=== PATIENT | female | born 1935 | race Caucasian/White ===

== ENCOUNTER 2018-08-28 11:09 | Inpatient (IN) | payer MEDICARE, OTHER ==
[2018-08-28] MEDS ORDERED: MORPHINE SULFATE 4 MG/ML SYRINGE IV STA (11:33)
[2018-08-28] MEDS ORDERED: SODIUM CHLORIDE 0.9% 500 ML 500 ML IV STA (11:33)
--- NOTE | 2018-08-28 11:48 | ED ---
General Adult HPI - General Chief complaint: Abdominal Pain Stated complaint: Abd Pain, syncope Time Seen by Provider: 08/28/18 11:16 Source: patient, EMS, RN notes reviewed, old records reviewed Mode of arrival: EMS Limitations: no limitations - History of Present Illness Initial comments: 82-year-old female presenting with 2 days of lower abdominal pain. Pain is been constant in nature. Patient describes some abdominal bloating. She denies upper abdominal pain, denies chest pain. Denies vomiting. She states she had a bowel movement yesterday which was normal. No fever or chills, she did feel lightheaded and almost passed out secondary to the pain. She states at that time she was diaphoretic. This occurred just prior to arrival. She believes the pain is steadily worsening. She has history of hypertension, chronic UTI and she is on daily Macrobid. - Related Data Home Medications Medication Instructions Recorded Confirmed ALPRAZolam [Xanax] 0.25 mg PO DAILY PRN 08/28/18 08/28/18 Metoprolol Succinate (ER) [Toprol 50 mg PO DAILY 08/28/18 08/28/18 Xl] Montelukast [Singulair] 10 mg PO DAILY 08/28/18 08/28/18 Nitrofurantoin Monohyd/M-Cryst 100 mg PO BID 08/28/18 08/28/18 [Macrobid] Telmisartan 80 mg PO DAILY 08/28/18 08/28/18 Allergies Allergy/AdvReac Type Severity Reaction Status Date / Time codeine Allergy Unknown Verified 08/28/18 14:14 flavoxate Allergy Unknown Verified 08/28/18 14:14 ANTIBIOTICS AdvReac Nausea & Uncoded 08/28/18 11:33 Vomiting & Diarrhea Review of Systems ROS Statement: Those systems with pertinent positive or pertinent negative responses have been documented in the HPI. ROS Other: All systems not noted in ROS Statement are negative. Past Medical History Past Medical History: Hypertension, Myocardial Infarction ([place]) Additional Past Medical History / Comment(s): frequent UTI's History of Any Multi-Drug Resistant Organisms: None Reported Past Surgical History: Appendectomy, Cholecystectomy, Heart Catheterization With Stent Past Psychological History: Anxiety Smoking Status: Former smoker Past Alcohol Use History: None Reported Past Drug Use History: None Reported General Exam Limitations: no limitations General appearance: alert, in no apparent distress Head exam: Present: atraumatic, normocephalic Eye exam: Present: normal appearance, PERRL ENT exam: Present: mucous membranes dry Neck exam: Present: normal inspection. Absent: tenderness, meningismus Respiratory exam: Present: normal lung sounds bilaterally, respiratory distress Cardiovascular Exam: Present: regular rate, normal rhythm GI/Abdominal exam: Present: soft, distended, tenderness (Bilateral lower abdominal tenderness to palpation) Extremities exam: Present: normal inspection, normal capillary refill. Absent: pedal edema, calf tenderness Neurological exam: Present: alert, oriented X3 Psychiatric exam: Present: normal affect, normal mood Skin exam: Present: warm, dry, intact. Absent: cyanosis, diaphoretic Course Vital Signs 08/28/18 08/28/18 08/28/18 11:11 11:30 12:00 Temperature 98.2 F Pulse Rate 78 76 74 Respiratory 18 18 16 Rate Blood Pressure 162/78 131/76 125/89 O2 Sat by Pulse 97 Oximetry 08/28/18 13:00 Temperature Pulse Rate 61 Respiratory 19 Rate Blood Pressure 162/83 O2 Sat by Pulse 96 Oximetry EKG Findings - EKG Comments: EKG Findings:: EKG obtained at 1128, sinus rhythm with first-degree AV block, ST segment depression and T-wave inversion throughout the precordial leads, no ST segment elevation, rate of 75, NM interval 212, QRS duration 80, QTC 433. 1229, sinus tachycardia with second-degree AV block rate of 55, NM interval variable, QRS duration 86, QTC 4:30, persistent ST segment depression in the precordial leads with T-wave inversion, stable Medical Decision Making - Medical Decision Making 82-year-old female with lower abdominal pain, dehydration, near syncopal episode. Patient is tender on exam, she has leukocytosis white cell count 14.8, normal electrolytes, mild lactic acidosis 2.7. She has acute diverticulitis with no perforation or abscess on CT. She is given IV hydration, started on IV antibiotics and Shailesh ceftriaxone and metronidazole. She will be admitted for continuous IV antibiotics. Incidentally patient did have EKG changes with second-degree heart block Mobitz type I. Vital signs are otherwise stable. - Lab Data Result diagrams: 08/28/18 11:50 08/28/18 11:50 Lab Results 08/28/18 08/28/18 08/28/18 Range/Units 11:50 11:50 11:50 WBC 14.8 H (3.8-10.6) k/uL RBC 4.39 (3.80-5.40) m/uL Hgb 13.0 (11.4-16.0) gm/dL Hct 39.8 (34.0-46.0) % MCV 90.6 (80.0-100.0) fL MCH 29.6 (25.0-35.0) pg MCHC 32.7 (31.0-37.0) g/dL RDW 13.7 (11.5-15.5) % Plt Count 229 (150-450) k/uL Neutrophils % 85 % Lymphocytes % 8 % Monocytes % 5 % Eosinophils % 1 % Basophils % 0 % Neutrophils # 12.6 H (1.3-7.7) k/uL Lymphocytes # 1.2 (1.0-4.8) k/uL Monocytes # 0.7 (0-1.0) k/uL Eosinophils # 0.1 (0-0.7) k/uL Basophils # 0.0 (0-0.2) k/uL Sodium 140 (137-145) mmol/L Potassium 4.4 (3.5-5.1) mmol/L Chloride 102 (98-107) mmol/L Carbon Dioxide 25 (22-30) mmol/L Anion Gap 13 mmol/L BUN 15 (7-17) mg/dL Creatinine 0.53 (0.52-1.04) mg/dL Est GFR (CKD-EPI)AfAm >90 (>60 ml/min/1.73 sqM) Est GFR (CKD-EPI)NonAf 90 (>60 ml/min/1.73 sqM) Glucose 141 H (74-99) mg/dL Plasma Lactic Acid Rehan 2.7 H* (0.7-2.0) mmol/L Calcium 10.0 (8.4-10.2) mg/dL Total Bilirubin 0.8 (0.2-1.3) mg/dL AST 19 (14-36) U/L ALT 22 (9-52) U/L Alkaline Phosphatase 67 (38-126) U/L Troponin I (0.000-0.034) ng/mL Total Protein 7.9 (6.3-8.2) g/dL Albumin 4.8 (3.5-5.0) g/dL Lipase 123 (23-300) U/L Urine Color Urine Appearance (Clear) Urine pH (5.0-8.0) Ur Specific [place] (1.001-1.035) Urine Protein (Negative) Urine Glucose (UA) (Negative) Urine Ketones (Negative) Urine Blood (Negative) Urine Nitrite (Negative) Urine Bilirubin (Negative) Urine Urobilinogen (<2.0) mg/dL Ur Leukocyte Esterase (Negative) Urine RBC (0-5) /hpf Urine WBC (0-5) /hpf Ur Squamous Epith Cells (0-4) /hpf Urine Bacteria (None) /hpf Urine Mucus (None) /hpf 08/28/18 08/28/18 Range/Units 11:50 13:40 WBC (3.8-10.6) k/uL RBC (3.80-5.40) m/uL Hgb (11.4-16.0) gm/dL Hct (34.0-46.0) % MCV (80.0-100.0) fL MCH (25.0-35.0) pg MCHC (31.0-37.0) g/dL RDW (11.5-15.5) % Plt Count (150-450) k/uL Neutrophils % % Lymphocytes % % Monocytes % % Eosinophils % % Basophils % % Neutrophils # (1.3-7.7) k/uL Lymphocytes # (1.0-4.8) k/uL Monocytes # (0-1.0) k/uL Eosinophils # (0-0.7) k/uL Basophils # (0-0.2) k/uL Sodium (137-145) mmol/L Potassium (3.5-5.1) mmol/L Chloride (98-107) mmol/L Carbon Dioxide (22-30) mmol/L Anion Gap mmol/L BUN (7-17) mg/dL Creatinine (0.52-1.04) mg/dL Est GFR (CKD-EPI)AfAm (>60 ml/min/1.73 sqM) Est GFR (CKD-EPI)NonAf (>60 ml/min/1.73 sqM) Glucose (74-99) mg/dL Plasma Lactic Acid Rehan (0.7-2.0) mmol/L Calcium (8.4-10.2) mg/dL Total Bilirubin (0.2-1.3) mg/dL AST (14-36) U/L ALT (9-52) U/L Alkaline Phosphatase (38-126) U/L Troponin I <0.012 (0.000-0.034) ng/mL Total Protein (6.3-8.2) g/dL Albumin (3.5-5.0) g/dL Lipase (23-300) U/L Urine Color Light Yellow Urine Appearance Cloudy H (Clear) Urine pH 7.0 (5.0-8.0) Ur Specific [place] 1.037 H (1.001-1.035) Urine Protein Trace H (Negative) Urine Glucose (UA) Negative (Negative) Urine Ketones Negative (Negative) Urine Blood Trace H (Negative) Urine Nitrite Negative (Negative) Urine Bilirubin Negative (Negative) Urine Urobilinogen <2.0 (<2.0) mg/dL Ur Leukocyte Esterase Large H (Negative) Urine RBC 14 H (0-5) /hpf Urine WBC 151 H (0-5) /hpf Ur Squamous Epith Cells 50 H (0-4) /hpf Urine Bacteria Occasional H (None) /hpf Urine Mucus Rare H (None) /hpf Disposition Clinical Impression: Abdominal pain, Diverticulitis, Second-degree heart block Disposition: ADMITTED IP TO THIS [facility] Condition: Stable Is patient prescribed a controlled substance at d/c from ED?: No Referrals: Nik Huston DO [Primary Care Provider] - 1-2 days Time of Disposition: 14:52
[2018-08-28 12:11] LABS: Basophils % (A) 0 %; Eosinophils # (A) 0.1 k/uL (0-0.7); Eosinophils % (A) 1 %; HCT 39.8 % (34.0-46.0); Lymphocytes # (A) 1.2 k/uL (1.0-4.8); Lymphocytes % (A) 8 %; MCH 29.6 pg (25.0-35.0); MCHC 32.7 g/dL (31.0-37.0); MCV 90.6 fL (80.0-100.0); Mean Platelet Volume 7.4; Monocytes # (A) 0.7 k/uL (0-1.0); Monocytes % (A) 5 %; Neutrophils # (A) 12.6 k/uL (1.3-7.7); Neutrophils % (A) 85 %; Platelet Count 229 k/uL (150-450); RBC 4.39 m/uL (3.80-5.40); RDW 13.7 % (11.5-15.5); WBC 14.8 k/uL (3.8-10.6)
[2018-08-28 12:20] LABS: ALT 22 U/L (9-52); AST 19 U/L (14-36); African American GFR (CKD) >90 (>60 ml/min/1.73 sqM); Albumin 4.8 g/dL (3.5-5.0); Alkaline Phosphatase 67 U/L (38-126); Anion Gap 13 mmol/L; Blood Urea Nitrogen 15 mg/dL (7-17); Carbon Dioxide 25 mmol/L (22-30); Chloride 102 mmol/L (98-107); Glucose 141 mg/dL (74-99); Lipase 123 U/L (23-300); Potassium 4.4 mmol/L (3.5-5.1); Sodium 140 mmol/L (137-145); Total Bilirubin 0.8 mg/dL (0.2-1.3); Total Protein 7.9 g/dL (6.3-8.2)
--- NOTE | 2018-08-28 12:26 | XR ---
EXAMINATION TYPE: XR chest 1V portable DATE OF EXAM: 08/28/2018 HISTORY: syncope. REFERENCE: NONE. FINDINGS: Mildly enlarged. The lungs are clear. Pleural spaces are clear. IMPRESSION: CARDIOMEGALY.
--- NOTE | 2018-08-28 13:49 | CT ---
EXAMINATION TYPE: CT abdomen pelvis w con DATE OF EXAM: 08/28/2018 REFERENCE: NONE HISTORY: abdominal pain HISTORY: LLQ pain CT DLP: 517.8 mGy Automated exposure control for dose reduction was used. TECHNIQUE: Helical acquisition through the abdomen and pelvis was obtained following the oral ingesti on of without Oral Contrast and following intravenous administration of 100 mL of Isovue 300. The hardeep a was reformatted in axial, coronal and sagittal projections. FINDINGS: There is minimal dependent atelectasis within the dependent portions of the lungs. There i s no pleural or pericardial fluid. The heart is mildly enlarged. Within the abdomen, the gallbladder has been removed. There is a common bile duct measures 1.3 cm at the level of the head of the pancreas. The spleen is unremarkable. Both adrenal glands are normal. The pancreas appears unremarkable. Both kidneys demonstrate function and appear morphologically normal. There is moderate atheromatous calcification of the visualized arterial tree. There is no significant retroperitoneal, iliac or inguinal adenopathy. The bladder is unremarkable. Uterus and ovaries are not visualized. There is moderate diverticular change in the sigmoid colon elsewhere throughout the left side of the colon. There is pericolonic inflammation at the junction of the descending colon with the sigmoid col on consistent with diverticulitis. There is no evidence of perforation. There is no pericolonic absce ss identified. The appendix is not visualized. Small bowel loops are normal. There is no free fluid and no free air. There is degenerative disc disease L5-S1. No bony destructive lesion is seen. IMPRESSION: 1. ACUTE DIVERTICULITIS. 2. MILD DEGENERATIVE CHANGES WITHIN THE SPINE.
[2018-08-28] MEDS ORDERED: cefTRIAXone IN SWFI 1,000 MG/10 ML SYRINGE IVP STA (14:08)
[2018-08-28] MEDS ORDERED: metroNIDAZOLE-NS PMX 500 MG in SALINE 1 100ML.BAG IVPB STA (14:10)
[2018-08-28 14:13] LABS: Appearance,Urine Cloudy (Clear); Bacteria,Urine Occasional /hpf; Bilirubin,Urine Negative (Negative); Blood,Urine Trace (Negative); Color,Urine Light Yellow; Glucose,Urine (UA) Negative (Negative); Ketones,Urine Negative (Negative); Leukocyte Esterase,Urine Large (Negative); Mucus,Urine Rare /hpf; Nitrite,Urine Negative (Negative); Protein,Urine Trace (Negative); RBC,Urine 14 /hpf (0-5); Specific Gravity,Urine 1.037 (1.001-1.035); Squamous Epithelial Cell,Urine 50 /hpf (0-4); Urobilinogen,Urine <2.0 mg/dL (<2.0); WBC,Urine 151 /hpf (0-5)
[2018-08-28] MEDS ORDERED: NALOXONE 0.4 MG/ML 1 ML VIAL IV PRN (14:44)
[2018-08-28] MEDS: SODIUM CHLORIDE 0.9% 1,000 ML IV SCH (14:49)
[2018-08-28] MEDS: MORPHINE SULFATE 4 MG/ML SYRINGE IV PRN ×2 (16:51→22:08)
[2018-08-28] MEDS ORDERED: ALPRAZolam 0.25 MG TAB PO PRN (17:34)
[2018-08-28] MEDS: PIPERACILLIN-TAZOBACTAM 3.375 GM in SODIUM CHLORIDE 0.9% 100 ML IVPB SCH (18:38)
[2018-08-28] MEDS: HEPARIN SODIUM,PORCINE 5,000 UNIT/ML 1 ML VIAL SQ SCH (20:31)
[2018-08-28] MEDS: metroNIDAZOLE-NS PMX 500 MG in SALINE 1 100ML.BAG IVPB SCH (23:27)
[2018-08-28] MEDS ORDERED: HYDROmorphone 0.5 MG/0.5 ML SYRINGE IVP PRN ×2 (23:53)
[2018-08-29] MEDS: PIPERACILLIN-TAZOBACTAM 3.375 GM in SODIUM CHLORIDE 0.9% 100 ML IVPB SCH ×3 (00:09→15:55)
[2018-08-29] MEDS: SODIUM CHLORIDE 0.9% 1,000 ML IV SCH ×2 (05:13→18:34)
[2018-08-29 06:42] LABS: Basophils % (A) 0 %; Eosinophils # (A) 0.1 k/uL (0-0.7); Eosinophils % (A) 2 %; HCT 33.6 % (34.0-46.0); HGB 11.2 gm/dL (11.4-16.0); Lymphocytes # (A) 1.4 k/uL (1.0-4.8); Lymphocytes % (A) 16 %; MCH 30.2 pg (25.0-35.0); MCHC 33.3 g/dL (31.0-37.0); MCV 90.5 fL (80.0-100.0); Mean Platelet Volume 7.7; Monocytes # (A) 0.4 k/uL (0-1.0); Monocytes % (A) 4 %; Neutrophils # (A) 6.7 k/uL (1.3-7.7); Neutrophils % (A) 76 %; Platelet Count 179 k/uL (150-450); RBC 3.71 m/uL (3.80-5.40); RDW 14.8 % (11.5-15.5); WBC 8.8 k/uL (3.8-10.6)
[2018-08-29 07:01] LABS: African American GFR (CKD) >90 (>60 ml/min/1.73 sqM); Anion Gap 8 mmol/L; Blood Urea Nitrogen 12 mg/dL (7-17); Calcium 8.8 mg/dL (8.4-10.2); Carbon Dioxide 23 mmol/L (22-30); Chloride 105 mmol/L (98-107); Glucose 128 mg/dL (74-99); Potassium 3.8 mmol/L (3.5-5.1); Sodium 136 mmol/L (137-145)
--- NOTE | 2018-08-29 07:06 | HP ---
HISTORY AND PHYSICAL DATE OF SERVICE: 08/28/2018 CHIEF COMPLAINTS: Abdominal pain, syncope. HISTORY OF PRESENT ILLNESS: This 82-year-old woman with a past medical history of multiple medical problems including hypertension, myocardial infarction, frequent UTIs, being followed by Dr. Nik huston in the outpatient setting apparently living with the family. The patient apparently was complaining of abdominal pain, left-sided abdominal for the last 4 days. Patient has somewhat diminished p.o. intake. The patient apparently had a recent episode of syncope at this time and passed out. Became lightheaded and patient taken to [facility] and admitted for further evaluation and treatment. The evaluation showed white count elevated 14.8. Lactic acid 2.7. UA showed evidence of UTI. The patient also had an abdominal pelvis CAT scan which was personally reviewed by me which showed evidence of acute diverticulitis and mild DJD of the spine also. The patient admitted for further evaluation and treatment. There is no history of fever, rigors or chills. No history of headache, seizures at this time. PAST MEDICAL HISTORY: History of hypertension, myocardial infarction, frequent UTIs, appendectomy, history of CAD/stent. MEDICATIONS: Prior to admission, home medications are: 2. Singulair 10 mg p.o. daily. 3. Toprol-XL 50 mg b.i.d. 4. Xanax 0.5 daily p.r.n. 5. Macrobid 100 mg p.o. b.i.d. ALLERGIES: CODEINE, ANTIBIOTICS. FAMILY HISTORY: History of anxiety, history of nicotine dependence in the family. SOCIAL HISTORY: Previous history of smoking. No history of alcohol intake. REVIEW OF SYSTEMS: ENT: No diminished vision. No diminished hearing. CARDIOVASCULAR: No angina or palpitations. RESPIRATORY: As mentioned earlier. GI no nausea or vomiting. no dysuria. NERVOUS SYSTEM: No numbness or weakness. ALLERGY/IMMUNOLOGY: No asthma or hayfever. MUSCULOSKELETAL as mentioned earlier. HEMATOLOGY/ONCOLOGY: No history of anemia. ENDOCRINE: No history of diabetes or hypothyroidism. CONSTITUTIONAL: As mentioned earlier. DERMATOLOGY: Negative. RHEUMATOLOGY negative. PSYCHIATRY as mentioned. PHYSICAL EXAMINATION: GENERAL: Alert and oriented times three. VITAL SIGNS: Pulse 59, blood pressure 141/60, respirations 16, temperature 98.6, pulse ox 94% on room air. HEENT: Conjunctivae normal. Oral mucosa moist. NECK is no jugular venous distention. No carotid bruit. No lymph node enlargement. CARDIOVASCULAR system: S1, S2 muffled. No s3, no S4. RESPIRATORY: Breath sounds diminished in the bases. No rhonchi. No crackles. ABDOMEN: Soft. Mild diffuse tenderness present. No guarding. No rigidity. No mass palpable. LEGS no edema, no swelling. NERVOUS SYSTEM as mentioned earlier. Moves all 4 limbs. No focal motor or sensory deficits. LYMPHATICS: No lymph nodes palpable in the neck, axillae or groin. SKIN. No ulcers, rash or bleeding. JOINTS: No active deforming arthropathy. LAB STUDIES: WBC 14.8, hemoglobin 13, glucose 141, and plasma lactic acid 2.7. Neutrophils are 12.6. UA noted. ASSESSMENT: 1. Acute diverticulitis, sigmoid with sepsis, present on admission. 2. Elevated lactic acid 2.7. 3. Increased WBC. 4. Elevated random blood sugar. 5. Possible urinary tract infection. 6. Hypertension. 7. History of myocardial infarction. 8. History of frequent urinary tract infections. 9. Appendectomy. 10.History of cholecystectomy. 11.History of coronary artery disease/stent. 12.History of anxiety. 13.Remote history of nicotine dependence. 14.FULL CODE. RECOMMENDATIONS AND DISCUSSION: This 82-year-old woman who presented with multiple complex medical issues, we will monitor the patient closely, continue the current medications, management and symptomatic treatment. We will initiate broad-spectrum IV antibiotics, IV fluids. I would also recommend consultation with surgery and Infectious Disease. Guarded prognosis because of multiple complex medical issues. Further recommendations to follow. A copy of this dictation being forwarded to Dr. Nik Huston who is the primary physician. See orders for details. DVT prophylaxis. Proton pump inhibitors. MMODL / IJN: [id number] / [email or web address]
[2018-08-29] MEDS: PANTOPRAZOLE 40 MG TABLET PO SCH (08:29)
[2018-08-29] MEDS: HEPARIN SODIUM,PORCINE 5,000 UNIT/ML 1 ML VIAL SQ SCH ×2 (08:29→20:10)
[2018-08-29] MEDS: LOSARTAN 50 MG TAB PO SCH (08:29)
[2018-08-29] MEDS: MONTELUKAST 10 MG TAB PO SCH (08:29)
[2018-08-29] MEDS: METOPROLOL SUCCINATE (ER) 50 MG TAB.ER.24H PO SCH (08:29)
[2018-08-29] MEDS: metroNIDAZOLE-NS PMX 500 MG in SALINE 1 100ML.BAG IVPB SCH ×3 (08:30→23:06)
--- NOTE | 2018-08-29 10:59 | P.GSCN ---
History of Present Illness Consult date: 08/29/18 Reason for Consult: Diverticulitis History of present illness: This 82-year-old female who was admitted to the medical service. Patient had co mplaints of abdominal pain. Her recent CAT scan shows evidence of acute diverticulitis. Patient complaints of left lower quadrant pain. She states her pain is a 6 out of 10. Past Medical History Past Medical History: Hypertension, Myocardial Infarction ([place]) Additional Past Medical History / Comment(s): frequent UTI's Last Myocardial Infarction Date:: 1991 History of Any Multi-Drug Resistant Organisms: None Reported Past Surgical History: Appendectomy, Cholecystectomy, Heart Catheterization With Stent Date of Last Stent Placement:: 1991 Past Psychological History: Anxiety Smoking Status: Former smoker Past Alcohol Use History: None Reported Past Drug Use History: None Reported Medications and Allergies Home Medications Medication Instructions Recorded Confirmed Type ALPRAZolam [Xanax] 0.25 mg PO DAILY PRN 08/28/18 08/28/18 History Metoprolol Succinate (ER) [Toprol 50 mg PO DAILY 08/28/18 08/28/18 History Xl] Montelukast [Singulair] 10 mg PO DAILY 08/28/18 08/28/18 History Nitrofurantoin Monohyd/M-Cryst 100 mg PO BID 08/28/18 08/28/18 History [Macrobid] Telmisartan 80 mg PO DAILY 08/28/18 08/28/18 History Allergies Allergy/AdvReac Type Severity Reaction Status Date / Time codeine Allergy Unknown Verified 08/28/18 14:14 flavoxate Allergy Unknown Verified 08/28/18 14:14 ANTIBIOTICS AdvReac Nausea & Uncoded 08/28/18 11:33 Vomiting & Diarrhea Surgical - Exam Vital Signs Temp Pulse Resp BP Pulse Ox 98.2 F 78 18 162/78 97 08/28/18 11:11 08/28/18 11:11 08/28/18 11:11 08/28/18 11:11 08/28/18 11:11 - General well developed, well nourished, no distress - Eyes PERRL - ENT normal pinna - Neck no masses - Respiratory normal expansion - Cardiovascular Rhythm: regular - Abdomen Marked left lower quadrant tenderness Abdomen: soft Results - Labs 08/29/18 06:26 08/29/18 06:26 Abnormal Lab Results - Last 24 Hours (Table) 08/28/18 08/28/18 08/28/18 Range/Units 11:50 11:50 11:50 WBC 14.8 H (3.8-10.6) k/uL RBC (3.80-5.40) m/uL Hgb (11.4-16.0) gm/dL Hct (34.0-46.0) % Neutrophils # 12.6 H (1.3-7.7) k/uL Sodium (137-145) mmol/L Glucose 141 H (74-99) mg/dL Plasma Lactic Acid Rehan 2.7 H* (0.7-2.0) mmol/L Urine Appearance (Clear) Ur Specific [place] (1.001-1.035) Urine Protein (Negative) Urine Blood (Negative) Ur Leukocyte Esterase (Negative) Urine RBC (0-5) /hpf Urine WBC (0-5) /hpf Ur Squamous Epith Cells (0-4) /hpf Urine Bacteria (None) /hpf Urine Mucus (None) /hpf 08/28/18 08/28/18 08/29/18 Range/Units 13:40 15:42 06:26 WBC (3.8-10.6) k/uL RBC 3.71 L (3.80-5.40) m/uL Hgb 11.2 L (11.4-16.0) gm/dL Hct 33.6 L (34.0-46.0) % Neutrophils # (1.3-7.7) k/uL Sodium (137-145) mmol/L Glucose (74-99) mg/dL Plasma Lactic Acid Rehan 2.3 H* (0.7-2.0) mmol/L Urine Appearance Cloudy H (Clear) Ur Specific [place] 1.037 H (1.001-1.035) Urine Protein Trace H (Negative) Urine Blood Trace H (Negative) Ur Leukocyte Esterase Large H (Negative) Urine RBC 14 H (0-5) /hpf Urine WBC 151 H (0-5) /hpf Ur Squamous Epith Cells 50 H (0-4) /hpf Urine Bacteria Occasional H (None) /hpf Urine Mucus Rare H (None) /hpf 08/29/18 Range/Units 06:26 WBC (3.8-10.6) k/uL RBC (3.80-5.40) m/uL Hgb (11.4-16.0) gm/dL Hct (34.0-46.0) % Neutrophils # (1.3-7.7) k/uL Sodium 136 L (137-145) mmol/L Glucose 128 H (74-99) mg/dL Plasma Lactic Acid Rehan (0.7-2.0) mmol/L Urine Appearance (Clear) Ur Specific [place] (1.001-1.035) Urine Protein (Negative) Urine Blood (Negative) Ur Leukocyte Esterase (Negative) Urine RBC (0-5) /hpf Urine WBC (0-5) /hpf Ur Squamous Epith Cells (0-4) /hpf Urine Bacteria (None) /hpf Urine Mucus (None) /hpf Microbiology - Last 24 Hours (Table) 08/28/18 13:40 Urine Culture - Preliminary Urine,Voided Diabetes panel 08/28/18 08/29/18 Range/Units 11:50 06:26 Sodium 140 136 L (137-145) mmol/L Potassium 4.4 3.8 (3.5-5.1) mmol/L Chloride 102 105 (98-107) mmol/L Carbon Dioxide 25 23 (22-30) mmol/L BUN 15 12 (7-17) mg/dL Creatinine 0.53 0.64 (0.52-1.04) mg/dL Glucose 141 H 128 H (74-99) mg/dL Calcium 10.0 8.8 (8.4-10.2) mg/dL AST 19 (14-36) U/L ALT 22 (9-52) U/L Alkaline Phosphatase 67 (38-126) U/L Total Protein 7.9 (6.3-8.2) g/dL Albumin 4.8 (3.5-5.0) g/dL Calcium panel 08/28/18 08/29/18 Range/Units 11:50 06:26 Calcium 10.0 8.8 (8.4-10.2) mg/dL Albumin 4.8 (3.5-5.0) g/dL Pituitary panel 08/28/18 08/29/18 Range/Units 11:50 06:26 Sodium 140 136 L (137-145) mmol/L Potassium 4.4 3.8 (3.5-5.1) mmol/L Chloride 102 105 (98-107) mmol/L Carbon Dioxide 25 23 (22-30) mmol/L BUN 15 12 (7-17) mg/dL Creatinine 0.53 0.64 (0.52-1.04) mg/dL Glucose 141 H 128 H (74-99) mg/dL Calcium 10.0 8.8 (8.4-10.2) mg/dL Adrenal panel 08/28/18 08/29/18 Range/Units 11:50 06:26 Sodium 140 136 L (137-145) mmol/L Potassium 4.4 3.8 (3.5-5.1) mmol/L Chloride 102 105 (98-107) mmol/L Carbon Dioxide 25 23 (22-30) mmol/L BUN 15 12 (7-17) mg/dL Creatinine 0.53 0.64 (0.52-1.04) mg/dL Glucose 141 H 128 H (74-99) mg/dL Calcium 10.0 8.8 (8.4-10.2) mg/dL Total Bilirubin 0.8 (0.2-1.3) mg/dL AST 19 (14-36) U/L ALT 22 (9-52) U/L Alkaline Phosphatase 67 (38-126) U/L Total Protein 7.9 (6.3-8.2) g/dL Albumin 4.8 (3.5-5.0) g/dL Assessment and Plan Assessment: Acute diverticula is. Patient will continue to receive IV antibiotics.
[2018-08-29] MEDS: ONDANSETRON 4 MG/2 ML VIAL IVP PRN (13:35)
--- NOTE | 2018-08-29 19:14 | PN ---
PROGRESS NOTE DATE OF SERVICE: 08/29/2018. This 82-year-old woman was admitted with abdominal pain and syncope also had features of diverticulitis. Patient being closely monitored. Surgery is following the patient closely. The patient on IV antibiotics. Patient also complains of some nausea also. PAST MEDICAL HISTORY: Reviewed. REVIEW OF SYSTEMS: CARDIOVASCULAR: No angina or palpitations. RESPIRATION: As mentioned earlier. GI: As mentioned earlier. : No dysuria. CENTRAL NERVOUS SYSTEM: No focal deficits. CURRENT MEDICATIONS: Reviewed and include: 1. Tylenol 650 q.6 p.r.n. 2. Xanax 0.5 t.i.d. 3. Heparin 5000 subcu b.i.d. 4. Cozaar 150 mg daily. 5. Toprol-XL 50 mg. 6. Flagyl 500 mg IV q.8h. 7. Singulair 10 mg daily. 8. Morphine sulfate 4 mg IV q.8 hours. 9. Narcan. 10.Zofran 4 mg. 11.Protonix 40 mg daily. 12.Zosyn 3.375 IV q.6h. PHYSICAL EXAM: Patient is alert, oriented x3. Pulse a 56, blood pressure 140/60, respiration 18, temperature 97.2, pulse ox 97% on room air. HEENT: Conjunctivae normal. NECK: No jugular venous distention. CARDIOVASCULAR: S1, S2 muffled. RESPIRATORY: Breath sounds diminished in the bases. A few scattered rhonchi and crackles. ABDOMEN: Soft. Mild diffuse tenderness in the left side. No guarding. No rigidity. There is no mass palpable. LEGS are no edema. No swelling. CENTRAL NERVOUS SYSTEM: No focal deficits. LAB STUDIES: WBC 8.8, hemoglobin 11.2. Sodium is 136, plasma lactic acid 2.3. UA noted. The cultures are negative so far. ASSESSMENT: 1. Acute diverticulitis with sigmoid with possible sepsis present on admission. 2. Elevated lactic acid 2.7. 3. Labile hypertension. 4. Increased WBC. 5. Elevated random blood sugar. 6. Urinary tract infection. 7. Hypertension. 8. History of myocardial infarction. 9. History of frequent urinary tract infections. 10.Appendectomy. 11.History of cholecystectomy. 12.History of coronary artery disease/stent. 13.History of anxiety. 14.Remote history of nicotine dependence. 15.FULL CODE. RECOMMENDATIONS AND DISCUSSION: Recommend to continue current medications. Recommend to continue current management. Continue with the IV antibiotics. Infectious disease evaluation. Otherwise, follow the cultures. Guarded prognosis because of multiple complex medical issues. Further recommendations to follow. MMODL / IJN: [id number] /
[2018-08-29] MEDS: MORPHINE SULFATE 4 MG/ML SYRINGE IVP PRN (21:16)
--- NOTE | 2018-08-29 22:47 | P.CONS ---
History of Present Illness - Reason for Consult Consult date: 08/29/18 Sigmoid diverticulitis and UTI Requesting physician: Prasanth Roper - Chief Complaint Abdominal pain 2 days - History of Present Illness Patient is 82-year-old female with a past medical history significant for chronic recurrent UTI for the patient currently on suppressive Macrobid therapy the patient presented to the [facility] ER with chief complaints of abdominal pain the patient his most lower abdominal area sharp to crampy in nature about 8 out of 10 and no radiation the patient has felt nauseated with it but no vomiting denies having any diarrhea the patient did have some chills and denies high-grade fever with these symptoms the patient has been evaluated by the physician on arrival to the ER the patient has been afebrile white count was not significantly elevated the patient did have CT of abdominal pelvis to suggest acute sigmoid diverticulitis with no perforation she also have a positive UA the patient will be started on Zosyn and infectious disease was consulted for further recommendation about antibiotic therapy Review of Systems Positive points has been mentioned in HPI. Rest of the systems are negative Past Medical History Past Medical History: Hypertension, Myocardial Infarction ([place]) Additional Past Medical History / Comment(s): frequent UTI's Last Myocardial Infarction Date:: 1991 History of Any Multi-Drug Resistant Organisms: None Reported Past Surgical History: Appendectomy, Cholecystectomy, Heart Catheterization With Stent Date of Last Stent Placement:: 1991 Past Psychological History: Anxiety Smoking Status: Former smoker Past Alcohol Use History: None Reported Past Drug Use History: None Reported Medications and Allergies Home Medications Medication Instructions Recorded Confirmed Type ALPRAZolam [Xanax] 0.25 mg PO DAILY PRN 08/28/18 08/28/18 History Metoprolol Succinate (ER) [Toprol 50 mg PO DAILY 08/28/18 08/28/18 History Xl] Montelukast [Singulair] 10 mg PO DAILY 08/28/18 08/28/18 History Nitrofurantoin Monohyd/M-Cryst 100 mg PO BID 08/28/18 08/28/18 History [Macrobid] Telmisartan 80 mg PO DAILY 08/28/18 08/28/18 History Allergies Allergy/AdvReac Type Severity Reaction Status Date / Time codeine Allergy Unknown Verified 08/28/18 14:14 flavoxate Allergy Unknown Verified 08/28/18 14:14 ANTIBIOTICS AdvReac Nausea & Uncoded 08/28/18 11:33 Vomiting & Diarrhea Physical Exam Vitals: Vital Signs Temp Pulse Pulse Resp BP BP Pulse Ox 08/29/18 11:55 97.6 F 56 L 18 143/65 97 08/29/18 10:49 60 08/29/18 08:00 97.4 F L 60 18 124/73 99 08/29/18 07:29 58 L 08/29/18 03:43 98 F 58 L 16 105/59 95 08/28/18 23:45 98.6 F 59 L 16 141/66 95 08/28/18 19:45 99.1 F 67 18 149/65 95 08/28/18 16:07 98.2 F 08/28/18 16:00 97.5 F L 65 18 179/77 96 08/28/18 15:40 98.1 F 62 20 140/88 08/28/18 15:00 98.2 F 58 L 18 132/77 08/28/18 14:00 142/88 08/28/18 13:50 68 20 142/88 Intake and Output 08/28/18 08/29/18 08/29/18 22:59 06:59 14:59 Intake Total 240 Balance 240 Intake: Oral 240 Other: Voiding Method Toilet Toilet Toilet Diaper Diaper Diaper # Voids 1 1 Weight 54.6 kg GENERAL DESCRIPTION: Elderly female lying in bed, no distress. No tachypnea or accessory muscle of respiration use. HEENT: Shows Pallor , no scleral icterus. Oral mucous membrane is dry. No pharyngeal erythema or thrush NECK: Trachea central, no thyromegaly. LUNGS: Unlabored breathing. Clear to auscultation anteriorly. No wheeze or crackle. HEART: S1, S2, regular rate and rhythm. No loud murmur ABDOMEN: Soft, left lower quadrant tenderness ,no guarding or rigidity EXTREMITIES: No edema of feet. SKIN: No rash, no masses palpable. NEUROLOGICAL: The patient is awake, alert, oriented x3, mood and affect normal Results CBC & Chem 7: 08/29/18 06:26 08/29/18 06:26 Labs: Abnormal Lab Results - Last 24 Hours (Table) 08/28/18 08/28/18 08/29/18 Range/Units 13:40 15:42 06:26 RBC 3.71 L (3.80-5.40) m/uL Hgb 11.2 L (11.4-16.0) gm/dL Hct 33.6 L (34.0-46.0) % Sodium (137-145) mmol/L Glucose (74-99) mg/dL Plasma Lactic Acid Rehan 2.3 H* (0.7-2.0) mmol/L Urine Appearance Cloudy H (Clear) Ur Specific [place] 1.037 H (1.001-1.035) Urine Protein Trace H (Negative) Urine Blood Trace H (Negative) Ur Leukocyte Esterase Large H (Negative) Urine RBC 14 H (0-5) /hpf Urine WBC 151 H (0-5) /hpf Ur Squamous Epith Cells 50 H (0-4) /hpf Urine Bacteria Occasional H (None) /hpf Urine Mucus Rare H (None) /hpf 08/29/18 Range/Units 06:26 RBC (3.80-5.40) m/uL Hgb (11.4-16.0) gm/dL Hct (34.0-46.0) % Sodium 136 L (137-145) mmol/L Glucose 128 H (74-99) mg/dL Plasma Lactic Acid Rehan (0.7-2.0) mmol/L Urine Appearance (Clear) Ur Specific [place] (1.001-1.035) Urine Protein (Negative) Urine Blood (Negative) Ur Leukocyte Esterase (Negative) Urine RBC (0-5) /hpf Urine WBC (0-5) /hpf Ur Squamous Epith Cells (0-4) /hpf Urine Bacteria (None) /hpf Urine Mucus (None) /hpf Microbiology - Last 24 Hours (Table) 08/28/18 13:40 Urine Culture - Preliminary Urine,Voided Assessment and Plan Assessment: 1-patient admitted hospital with abdominal pain in this patient who did have evidence of tenderness in the left lower abdominal area CT has been suspicious for sigmoid diverticulitis without any perforation will need to cover for the enteric gram-negative both aerobes and anaerobes 2-patient with history of chronic/recurrent urinary tract infection on a suppressive Macrobid therapy with the positive UA and send urine symptom possible gram-negative urinary tract infection (1) UTI (urinary tract infection) Current Visit: Yes Status: Acute Code(s): N39.0 - URINARY TRACT INFECTION, SITE NOT SPECIFIED SNOMED Code(s): 03840442 (2) Diverticulitis Current Visit: Yes Status: Acute Code(s): K57.92 - DVTRCLI OF INTEST, PART UNSP, W/O PERF OR ABSCESS W/O BLEED SNOMED Code(s): 135058789 Plan: 1-patient will be treated with Zosyn 3.375 g every 8 hours 2-gentle IV fluid and nothing by mouth status for bowel rest we will follow up on clinical condition and cultures to further adjust medication if needed Thank you for this consultation will follow this patient along with you Time with Patient: Greater than 30
[2018-08-30] MEDS: PIPERACILLIN-TAZOBACTAM 3.375 GM in SODIUM CHLORIDE 0.9% 100 ML IVPB SCH ×4 (00:58→23:30)
[2018-08-30] MEDS: MORPHINE SULFATE 4 MG/ML SYRINGE IVP PRN (03:03)
[2018-08-30] MEDS: SODIUM CHLORIDE 0.9% 1,000 ML IV SCH ×2 (03:04→20:12)
[2018-08-30] MEDS: PANTOPRAZOLE 40 MG TABLET PO SCH (06:30)
[2018-08-30 06:54] LABS: Basophils % (A) 0 %; Eosinophils # (A) 0.2 k/uL (0-0.7); Eosinophils % (A) 4 %; HCT 35.2 % (34.0-46.0); HGB 11.4 gm/dL (11.4-16.0); Lymphocytes # (A) 1.3 k/uL (1.0-4.8); Lymphocytes % (A) 20 %; MCH 29.8 pg (25.0-35.0); MCHC 32.5 g/dL (31.0-37.0); MCV 91.7 fL (80.0-100.0); Mean Platelet Volume 7.8; Monocytes # (A) 0.3 k/uL (0-1.0); Monocytes % (A) 5 %; Neutrophils # (A) 4.5 k/uL (1.3-7.7); Neutrophils % (A) 69 %; Platelet Count 178 k/uL (150-450); RBC 3.84 m/uL (3.80-5.40); RDW 14.6 % (11.5-15.5); WBC 6.4 k/uL (3.8-10.6)
[2018-08-30 06:57] LABS: African American GFR (CKD) >90 (>60 ml/min/1.73 sqM); Anion Gap 5 mmol/L; Blood Urea Nitrogen 9 mg/dL (7-17); Calcium 8.9 mg/dL (8.4-10.2); Carbon Dioxide 26 mmol/L (22-30); Chloride 109 mmol/L (98-107); Glucose 111 mg/dL (74-99); Potassium 4.1 mmol/L (3.5-5.1); Sodium 140 mmol/L (137-145)
[2018-08-30] MEDS: ONDANSETRON 4 MG/2 ML VIAL IVP PRN (09:42)
[2018-08-30] MEDS: metroNIDAZOLE-NS PMX 500 MG in SALINE 1 100ML.BAG IVPB SCH ×3 (10:44→23:30)
[2018-08-30] MEDS: METOPROLOL SUCCINATE (ER) 50 MG TAB.ER.24H PO SCH (10:46)
[2018-08-30] MEDS: MONTELUKAST 10 MG TAB PO SCH (10:46)
[2018-08-30] MEDS: HEPARIN SODIUM,PORCINE 5,000 UNIT/ML 1 ML VIAL SQ SCH ×2 (10:46→20:17)
[2018-08-30] MEDS: LOSARTAN 50 MG TAB PO SCH (10:46)
--- NOTE | 2018-08-30 11:33 | P.PN ---
Subjective Progress Note Date: 08/30/18 CHIEF COMPLAINT: Diverticulitis HISTORY OF PRESENT ILLNESS: Patient examined this morning at the bedside. Patient denies pain at rest. She reports tenderness to left lower quadrant upon palpation. She reports nausea with this morning. She states she only had a few bites of full liquid diet. No reports of emesis. WBC 6.4. Hemoglobin 11.4. PHYSICAL EXAM: VITAL SIGNS: Reviewed. GENERAL: Well-developed in no acute distress. HEENT: No sclera icterus. Extraocular movements grossly intact. Moist buccal mucosa. Head is atraumatic, normocephalic. ABDOMEN: Soft. Nondistended. Tenderness to left lower quadrant upon palpation. NEUROLOGIC: Alert and oriented. Cranial nerves II through XII grossly intact. ASSESSMENT: 1. Acute diverticulitis PLAN: 1. Continue full liquid diet 2. Continue antibiotics 3. Continue antiemetics Nurse practitioner note has been reviewed by physician. Signing provider agrees with the documented findings, assessment, and plan of care. Objective - Vital Signs Vital signs: Vital Signs Temp 98.1 F 08/30/18 08:00 Pulse 60 08/30/18 08:00 Resp 18 08/30/18 08:00 BP 164/77 08/30/18 08:00 Pulse Ox 94 L 08/30/18 08:00 Intake & Output 08/29/18 08/30/18 08/30/18 18:59 06:59 18:59 Intake Total 460 240 Balance 460 240 Weight 55.1 kg Intake: Intake, IV Titration 100 Amount Piperacillin-Tazobactam 3 100 .375 gm In Sodium Chloride 0.9% 100 ml @ 25 mls/hr IVPB Q8HR [facility] Rx# :[id number] Oral 360 240 Other: Voiding Method Toilet Toilet Toilet Diaper Diaper Diaper # Voids 1 1 - Labs CBC & Chem 7: 08/30/18 06:16 08/30/18 06:16 Labs: Abnormal Lab Results - Last 24 Hours (Table) 08/30/18 Range/Units 06:16 Chloride 109 H (98-107) mmol/L Glucose 111 H (74-99) mg/dL Microbiology - Last 24 Hours (Table) 08/28/18 13:40 Urine Culture - Preliminary Urine,Voided Gram Neg Bacilli 08/28/18 11:50 Blood Culture - Preliminary Blood No Growth after 24 hours
--- NOTE | 2018-08-30 13:04 | PN ---
PROGRESS NOTE DATE OF SERVICE: 08/30/2018 REASON FOR FOLLOWUP: Sigmoid diverticulitis. INTERVAL HISTORY: The patient is currently afebrile. The patient abdominal pain has slightly improved. Patient denies having any chest pain or shortness of breath or cough. No diarrhea. PHYSICAL EXAMINATION: On examination, blood pressure 164/77 with a pulse of 60, temperature of 98.1. She is 94% on room air. General description is an elderly female, lying in bed in no distress. RESPIRATORY SYSTEM: Unlabored breathing, clear to auscultation anteriorly. HEART: S1, S2. Regular rate and rhythm. ABDOMEN: Soft. Minimal tenderness left lower quadrant area. No guarding or rigidity. LABS: Hemoglobin 11.4, white count 6.4, BUN of 9, creatinine 0.65. DIAGNOSTIC IMPRESSION AND PLAN: Patient with acute sigmoid diverticulitis without perforation. Patient is currently covered with Zosyn to continue while waiting for the clinical condition to stabilize and continue supportive care. MMODL / IJN: [id number] /
--- NOTE | 2018-08-30 13:51 | P.PN ---
Subjective This is a pleasant 82 years old female with past medical history of hypertension and coronary artery disease. Presents with signs symptoms of diverticulitis, patient currently is on antibiotics with Flagyl and Zosyn. Also she is on parenteral fluids. Patient to its advanced today to full liquid diet. Patient abdominal pain today 09/29. She has some nausea and vomiting. Denies blood in it. She is passing gases but no bowel movement. No more syncope. She is lying in bed not in distress. Surgery team are following the patient close ly. He has no fever. She is hemodialysis is stable. No leukocytosis. Creatinine 0.6 today. Urine cultures positive for gram-negative bacilli Review of systems CONSTITUTIONAL: No fever, no malaise, no fatigue. HEENT: No recent visual problems or hearing problems. Denied any sore throat. CARDIOVASCULAR: No orthopnea, PND, no palpitations, no syncope. PULMONARY: No shortness of breath, no cough, no hemoptysis. GASTROINTESTINAL: Normoactive bowel sounds. NEUROLOGICAL: No headaches, no weakness, no numbness. HEMATOLOGICAL: Denies any bleeding or petechiae. GENITOURINARY: Denies any burning micturition, frequency, or urgency. MUSCULOSKELETAL/RHEUMATOLOGICAL: Denies any joint pain, swelling, or any muscle pain. ENDOCRINE: Denies any polyuria or polydipsia. Medication: Tylenol 650 mg, Xanax 0.25 mg, heparin 5000 units, losartan 150 mg, Toprol 50 mg, Flagyl 500 mg, Singulair 10 mg, morphine sulfate 4 mg, Zofran 4 mg, Protonix 40 mg, Zosyn 3.375 g, normal saline at 75 L/h Objective - Vital Signs Vital signs: Vital Signs Temp 98.1 F 08/30/18 08:00 Pulse 60 08/30/18 08:00 Resp 18 08/30/18 08:00 BP 164/77 08/30/18 08:00 Pulse Ox 94 L 08/30/18 08:00 Intake & Output 08/29/18 08/30/18 08/30/18 18:59 06:59 18:59 Intake Total 460 240 Balance 460 240 Weight 55.1 kg Intake: Intake, IV Titration 100 Amount Piperacillin-Tazobactam 3 100 .375 gm In Sodium Chloride 0.9% 100 ml @ 25 mls/hr IVPB Q8HR [facility] Rx# :[id number] Oral 360 240 Other: Voiding Method Toilet Toilet Toilet Diaper Diaper Diaper # Voids 1 1 - Exam GENERAL: The patient is alert and oriented x3, not in any acute distress. Well developed, well nourished. HEENT: Pupils are round and equally reacting to light. EOMI. No scleral icterus. No conjunctival pallor. Normocephalic, atraumatic. No pharyngeal erythema. No thyromegaly. CARDIOVASCULAR: S1 and S2 present. No murmurs, rubs, or gallops. PULMONARY: Chest is clear to auscultation, no wheezing or crackles. -ABDOMEN: Soft, left lower quadrant tenderness with no rebound tenderness, normoactive bowel sounds. No palpable organomegaly. MUSCULOSKELETAL: No joint swelling or deformity. EXTREMITIES: No cyanosis, clubbing, or pedal edema. NEUROLOGICAL: Gross neurological examination did not reveal any focal deficits. SKIN: No rashes. - Labs CBC & Chem 7: 08/30/18 06:16 08/30/18 06:16 Labs: Abnormal Lab Results - Last 24 Hours (Table) 08/30/18 Range/Units 06:16 Chloride 109 H (98-107) mmol/L Glucose 111 H (74-99) mg/dL Microbiology - Last 24 Hours (Table) 08/28/18 13:40 Urine Culture - Preliminary Urine,Voided Gram Neg Bacilli 08/28/18 11:50 Blood Culture - Preliminary Blood No Growth after 24 hours Assessment and Plan Assessment: Acute diverticulitis Urinary tract infection Elevated lactic acid, resolved Hypertension History of coronary artery disease History of frequent urinary tract infection Plan: This is a pleasant 82 years old female who presents with acute diverticulitis and UTI. Follow-up culture results. Continue with antibiotics. Follow-up surgical recommendation. ID team are seeing the patient as well. Labs and medication were reviewed.. Continue same treatment. Continue with symptomatic treatment. Resume home medication. Monitor lytes and vitals. DVT and GI prophylaxis. Further recommendations of the clinical course of the patient DVT prophylaxis: Subcutaneous heparin GI Prophylaxis: Protonix PT/OT: Pending Prognosis is guarded
[2018-08-30] MEDS: ACETAMINOPHEN TAB 325 MG TAB PO PRN ×2 (16:29→23:40)
[2018-08-31] MEDS ORDERED: amLODIPine 10 MG TAB PO STA (04:39)
[2018-08-31] MEDS: PANTOPRAZOLE 40 MG TABLET PO SCH (06:36)
[2018-08-31 08:08] LABS: Basophils % (A) 0 %; Eosinophils # (A) 0.2 k/uL (0-0.7); Eosinophils % (A) 3 %; HCT 38.9 % (34.0-46.0); HGB 12.5 gm/dL (11.4-16.0); Lymphocytes # (A) 1.1 k/uL (1.0-4.8); Lymphocytes % (A) 17 %; MCH 29.5 pg (25.0-35.0); MCHC 32.3 g/dL (31.0-37.0); MCV 91.5 fL (80.0-100.0); Mean Platelet Volume 7.5; Monocytes # (A) 0.2 k/uL (0-1.0); Monocytes % (A) 4 %; Neutrophils # (A) 4.8 k/uL (1.3-7.7); Neutrophils % (A) 75 %; Platelet Count 215 k/uL (150-450); RBC 4.25 m/uL (3.80-5.40); RDW 13.8 % (11.5-15.5); WBC 6.4 k/uL (3.8-10.6)
[2018-08-31 08:50] LABS: African American GFR (CKD) >90 (>60 ml/min/1.73 sqM); Anion Gap 11 mmol/L; Blood Urea Nitrogen 5 mg/dL (7-17); Calcium 9.3 mg/dL (8.4-10.2); Carbon Dioxide 23 mmol/L (22-30); Chloride 108 mmol/L (98-107); Glucose 156 mg/dL (74-99); Potassium 3.6 mmol/L (3.5-5.1); Sodium 142 mmol/L (137-145)
[2018-08-31] MEDS: METOPROLOL SUCCINATE (ER) 50 MG TAB.ER.24H PO SCH (08:57)
[2018-08-31] MEDS: HEPARIN SODIUM,PORCINE 5,000 UNIT/ML 1 ML VIAL SQ SCH ×2 (08:59→21:53)
[2018-08-31] MEDS: PIPERACILLIN-TAZOBACTAM 3.375 GM in SODIUM CHLORIDE 0.9% 100 ML IVPB SCH ×2 (09:12→18:02)
[2018-08-31] MEDS: MONTELUKAST 10 MG TAB PO SCH (09:22)
--- NOTE | 2018-08-31 10:40 | P.PN ---
Subjective This is a pleasant 82 years old female with past medical history of hypertension and coronary artery disease. Presents with signs symptoms of diverticulitis, patient currently is on antibiotics with Flagyl and Zosyn. Also she is on parenteral fluids. Patient to its advanced today to full liquid diet. Patient abdominal pain today 09/29. She has some nausea and vomiting. Denies blood in it. She is passing gases but no bowel movement. No more syncope. She is lying in bed not in distress. Surgery team are following the patient close ly. He has no fever. She is hemodialysis is stable. No leukocytosis. Creatinine 0.6 today. Urine cultures positive for gram-negative bacilli 08/31/2018 Patient today feels better with less abdominal pain and mild left lower quadrant abdominal tenderness. Patient could not tolerate the diet very well yesterday but she is willing to eat today. She had some nausea but no vomiting. And she still have frequent bowel movement, she has 5 bouts of loose bowel movement overnight. However she looks more awake and comfortable. Her blood pressure was elevated overnight and her blood medications are restarted other usual toes, currently her blood pressure is 144/69. Patient was looking anxious and we are doing with family member, Xanax is provided. Patient feels better. Discussed case with surgery team. We'll advance diet and keep the patient on the current antibiotics, infectious disease R following. Her urine culture is Positive to Pseudomonas which is sensitive to Zosyn. at bed side and she was abated tubular with the patient about her problems and management plan and they agree. Objective - Vital Signs Vital signs: Vital Signs Temp 97.9 F 08/31/18 08:00 Pulse 69 08/31/18 08:00 Resp 16 08/31/18 08:00 BP 144/69 08/31/18 08:00 Pulse Ox 98 08/31/18 04:00 Intake & Output 08/30/18 08/31/18 08/31/18 18:59 06:59 18:59 Intake Total 960 120 Balance 960 120 Weight 54.7 kg Intake: Oral 960 120 Other: Voiding Method Toilet Toilet Toilet Diaper Diaper Diaper # Voids 1 1 # Bowel Movements 1 - Exam GENERAL: The patient is alert and oriented x3, not in any acute distress. Well developed, well nourished. HEENT: Pupils are round and equally reacting to light. EOMI. No scleral icterus. No conjunctival pallor. Normocephalic, atraumatic. No pharyngeal erythema. No thyromegaly. CARDIOVASCULAR: S1 and S2 present. No murmurs, rubs, or gallops. PULMONARY: Chest is clear to auscultation, no wheezing or crackles. -ABDOMEN: Soft, left lower quadrant tenderness with no rebound tenderness, normoactive bowel sounds. No palpable organomegaly. MUSCULOSKELETAL: No joint swelling or deformity. EXTREMITIES: No cyanosis, clubbing, or pedal edema. NEUROLOGICAL: Gross neurological examination did not reveal any focal deficits. SKIN: No rashes. - Labs CBC & Chem 7: 08/31/18 07:32 08/31/18 07:32 Labs: Abnormal Lab Results - Last 24 Hours (Table) 08/31/18 Range/Units 07:32 Chloride 108 H (98-107) mmol/L BUN 5 L (7-17) mg/dL Glucose 156 H (74-99) mg/dL Microbiology - Last 24 Hours (Table) 08/28/18 13:40 Urine Culture - Final Urine,Voided Pseudomonas aeruginosa 08/28/18 11:50 Blood Culture - Preliminary Blood No Growth after 48 hours Assessment and Plan Assessment: Acute diverticulitis Urinary tract infection Elevated lactic acid, resolved Hypertension History of coronary artery disease History of frequent urinary tract infection Plan: This is a pleasant 82 years old female who presents with acute diverticulitis and UTI. Follow-up culture results. Continue with antibiotics. Follow-up surgical recommendation. ID team are seeing the patient as well. Labs and medication were reviewed.. Continue same treatment. Continue with symptomatic treatment. Resume home medication. Monitor lytes and vitals. DVT and GI prophylaxis. Further recommendations of the clinical course of the patient DVT prophylaxis: Subcutaneous heparin GI Prophylaxis: Protonix PT/OT: Pending Prognosis is guarded
[2018-08-31] MEDS: SODIUM CHLORIDE 0.9% 1,000 ML IV SCH (11:07)
[2018-08-31] MEDS: LOSARTAN 50 MG TAB PO SCH (11:08)
[2018-08-31] MEDS: ALPRAZolam 0.25 MG TAB PO PRN (11:19)
--- NOTE | 2018-08-31 12:18 | P.PN ---
Subjective Progress Note Date: 08/31/18 CHIEF COMPLAINT: Diverticulitis HISTORY OF PRESENT ILLNESS: Patient examined this morning at the bedside. She reports very minimal tenderness to left lower quadrant. She is tolerating full liquid diet. She reports 4-5 episodes of diarrhea this morning. Denies nausea or vomiting. PHYSICAL EXAM: VITAL SIGNS: Reviewed. GENERAL: Well-developed in no acute distress. HEENT: No sclera icterus. Extraocular movements grossly intact. Moist buccal mucosa. Head is atraumatic, normocephalic. ABDOMEN: Soft. Nondistended. Minimal tenderness to left lower quadrant upon palpation. NEUROLOGIC: Alert and oriented. Cranial nerves II through XII grossly intact. ASSESSMENT: 1. Acute diverticulitis PLAN: Advance diet as tolerated Continue antibiotics Nurse practitioner note has been reviewed by physician. Signing provider agrees with the documented findings, assessment, and plan of care. Objective - Vital Signs Vital signs: Vital Signs Temp 97.9 F 08/31/18 08:00 Pulse 69 08/31/18 08:00 Resp 16 08/31/18 08:00 BP 144/69 08/31/18 08:00 Pulse Ox 98 08/31/18 04:00 Intake & Output 08/30/18 08/31/18 08/31/18 18:59 06:59 18:59 Intake Total 960 120 Balance 960 120 Weight 54.7 kg Intake: Oral 960 120 Other: Voiding Method Toilet Toilet Toilet Diaper Diaper Diaper # Voids 1 1 # Bowel Movements 1 - Labs CBC & Chem 7: 08/31/18 07:32 08/31/18 07:32 Labs: Abnormal Lab Results - Last 24 Hours (Table) 08/31/18 Range/Units 07:32 Chloride 108 H (98-107) mmol/L BUN 5 L (7-17) mg/dL Glucose 156 H (74-99) mg/dL Microbiology - Last 24 Hours (Table) 08/28/18 13:40 Urine Culture - Final Urine,Voided Pseudomonas aeruginosa 08/28/18 11:50 Blood Culture - Preliminary Blood No Growth after 48 hours
--- NOTE | 2018-08-31 17:41 | PN ---
PROGRESS NOTE DATE OF SERVICE: 08/31/2018 REASON FOR FOLLOWUP: Acute diverticulitis. INTERVAL HISTORY: The patient is currently afebrile. She has been breathing comfortably. Pain to the left lower abdominal area has slightly decreased in intensity. No chest pain, shortness of breath or cough. No diarrhea. PHYSICAL EXAMINATION: Blood pressure is 131/69 with a pulse of 74, temperature 98.1. She is 97% on room air. General description is an elderly female lying in bed in no distress. RESPIRATORY SYSTEM: Unlabored breathing. Clear to auscultation anteriorly. HEART: S1, S2. Regular rate and rhythm. ABDOMEN: Soft. No tenderness. LABS: Hemoglobin is 12.5, white count 6.4 with a BUN of 5, creatinine 0.53. DIAGNOSTIC IMPRESSION AND PLAN: Patient with acute sigmoid diverticulitis without perforation. Patient is currently on Zosyn. Will transition to oral antibiotic on discharge. Continue with supportive care. MMODL / IJN: [id number] /
[2018-08-31] MEDS ORDERED: TELMISARTAN 80MG TABLET PO SCH (21:00)
[2018-08-31] MEDS ORDERED: amLODIPine 5 MG TAB PO PRN (21:16)
[2018-09-01] MEDS: SODIUM CHLORIDE 0.9% 1,000 ML IV SCH (00:02)
[2018-09-01] MEDS: PIPERACILLIN-TAZOBACTAM 3.375 GM in SODIUM CHLORIDE 0.9% 100 ML IVPB SCH ×2 (00:02→08:21)
[2018-09-01] MEDS: ALPRAZolam 0.25 MG TAB PO PRN (00:30)
[2018-09-01] MEDS: PANTOPRAZOLE 40 MG TABLET PO SCH (08:17)
[2018-09-01] MEDS: HEPARIN SODIUM,PORCINE 5,000 UNIT/ML 1 ML VIAL SQ SCH (08:17)
[2018-09-01] MEDS: MONTELUKAST 10 MG TAB PO SCH (08:17)
[2018-09-01] MEDS: METOPROLOL SUCCINATE (ER) 50 MG TAB.ER.24H PO SCH (08:49)
[2018-09-01] MEDS ORDERED: AMOXIC-POT CLAV 875-125MG 1 EACH TAB PO SCH (09:45)
[2018-09-01 10:08] LABS: Basophils % (A) 1 %; Eosinophils # (A) 0.3 k/uL (0-0.7); Eosinophils % (A) 4 %; HCT 37.8 % (34.0-46.0); HGB 12.2 gm/dL (11.4-16.0); Lymphocytes # (A) 1.3 k/uL (1.0-4.8); Lymphocytes % (A) 21 %; MCH 29.7 pg (25.0-35.0); MCHC 32.2 g/dL (31.0-37.0); MCV 92.2 fL (80.0-100.0); Mean Platelet Volume 7.6; Monocytes # (A) 0.3 k/uL (0-1.0); Monocytes % (A) 4 %; Neutrophils # (A) 4.2 k/uL (1.3-7.7); Neutrophils % (A) 69 %; Platelet Count 241 k/uL (150-450); RDW 13.8 % (11.5-15.5); WBC 6.1 k/uL (3.8-10.6)
--- NOTE | 2018-09-01 10:10 | P.DS ---
Providers Date of admission: 08/28/18 14:44 Attending physician: Prasanth Roper Consults: 08/29/18 00:27 Consult Physician Routine Consulting Provider: Ga Metzger Consult Reason/Comments: diverticulitis Do you want consulting provider notified?: Yes Consult Physician Routine Consulting Provider: Suzanen Hannon Consult Reason/Comments: sepsis Do you want consulting provider notified?: Yes Primary care physician: [facility] Course: Diagnoses: Acute diverticulitis Urinary tract infection Elevated lactic acid, resolved Hypertension History of coronary artery disease History of frequent urinary tract infection Hospital course: This is a pleasant 82 years old female with past medical history of hypertension and coronary artery disease. Presents with signs symptoms of diverticulitis, with left lower quadrant abdominal pain and tenderness. Patient has been evaluated by surgical and infectious disease team. Patient was treated with IV fluids and antibiotics with Zosyn. Patient showed interval improvement and her abdominal pain is significantly improved and on the day of discharge his level of pain was 0/10 in severity in her abdomen and left lower quadrant. With mild left lower quadrant tenderness and no rebound tenderness on exam. Her nausea vomiting or completely resolved. Patient is tolerating diet well. Patient she still have loose bowel movement but is significantly improved from watery up to soft/informed 50-50 percent. Patient is very active and she has no other complaints. No chest pain or dyspnea. Patient has been evaluated by infectious and surgical team on both cleared her for discharge. Patient will be discharged on 10 more days of Augmentin. Patient she has an appointment with her PCP tomorrow that she intends to follow-up with, confirmed with her son. Appointment made with surgical team upon discharge and patient agrees with the appointments and timing and states she will follow-up. Problems and management plan were discussed with the patient and he verbalized understanding and acceptance Patient was found stable and can be discharged home however he needs follow-up as an outpatient. Gen: patient is a AAOx3, no distress CVS: S1-S2, RRR, no murmur Lungs: B/L CTA, no wheezing -Abdomen: soft, no distention, very mild LLQ tenderness with no rebound tenderness, positive bowel sounds Extremity: no leg edema or induration Time spent more than 35 minutes Patient Condition at Discharge: Stable Plan - Discharge Summary New Discharge Prescriptions: New Amoxic-Pot Clav 875-125Mg [Augmentin 875-125] 1 each PO Q12HR #9 tab Pantoprazole [Protonix] 40 mg PO AC-BRKFST #15 tablet. Acetaminophen Tab [Tylenol] 650 mg PO Q6HR PRN #20 tab PRN Reason: Mild Pain Or Fever > 100.5 Continue Telmisartan 80 mg PO HS Montelukast [Singulair] 10 mg PO DAILY ALPRAZolam [Xanax] 0.25 mg PO DAILY PRN PRN Reason: Anxiety Nitrofurantoin Monohyd/M-Cryst [Macrobid] 100 mg PO BID Metoprolol Succinate (ER) [Toprol XL] 50 mg PO DAILY Discharge Medication List ALPRAZolam [Xanax] 0.25 mg PO DAILY PRN 08/28/18 [History] Metoprolol Succinate (ER) [Toprol XL] 50 mg PO DAILY 08/28/18 [History] Montelukast [Singulair] 10 mg PO DAILY 08/28/18 [History] Nitrofurantoin Monohyd/M-Cryst [Macrobid] 100 mg PO BID 08/28/18 [History] Telmisartan 80 mg PO HS 08/28/18 [History] Acetaminophen Tab [Tylenol] 650 mg PO Q6HR PRN #20 tab 09/01/18 [Rx] Amoxic-Pot Clav 875-125Mg [Augmentin 875-125] 1 each PO Q12HR #9 tab 09/01/18 [Rx] Pantoprazole [Protonix] 40 mg PO AC-BRKFST #15 tablet. 09/01/18 [Rx] Follow up Appointment(s)/Referral(s): Nik Huston DO [Primary Care Provider] - 1-2 days Ga Metzger MD [STAFF PHYSICIAN] - 09/09/18 3:20 pm Patient Instructions/Handouts: Diverticulitis (DC), Diverticulitis (GEN), Diverticulosis Diet (GEN) Activity/Diet/Wound Care/Special Instructions: cardiac diet activity is limited till you see your doctor Discharge Disposition: HOME SELF-CARE
--- NOTE | 2018-09-01 10:23 | P.PN ---
Progress Note - Text Progress Note Date: 09/01/18 The patient is a well.. She's being discharged home today. On exam her vital signs are still. Abdomen soft. It is marked improvement in her left lower quadrant pain. Resolving diverticulitis. Patient will follow-up in the office in one week.
[2018-09-01 10:30] LABS: African American GFR (CKD) >90 (>60 ml/min/1.73 sqM); Anion Gap 14 mmol/L; Blood Urea Nitrogen 10 mg/dL (7-17); Calcium 9.4 mg/dL (8.4-10.2); Carbon Dioxide 20 mmol/L (22-30); Chloride 105 mmol/L (98-107); Glucose 226 mg/dL (74-99); Potassium 3.5 mmol/L (3.5-5.1); Sodium 139 mmol/L (137-145)
--- NOTE | 2018-09-01 12:11 | PN ---
PROGRESS NOTE DATE OF SERVICE: 09/01/2018 REASON FOR FOLLOWUP: Acute sigmoid diverticulitis without perforation. INTERVAL HISTORY: The patient is currently afebrile. The patient has been feeling better. Breathing comfortably. The patient abdominal pain has improved. No nausea, vomiting, or any diarrhea. PHYSICAL EXAMINATION: On examination, blood pressure is 166/84 with a pulse of 75, temperature 98.2. She is 97% on room air. General appearance is an elderly female lying in bed in no distress. RESPIRATORY SYSTEM: Unlabored breathing, clear to auscultation anteriorly. HEART: S1, S2. Regular rate and rhythm. ABDOMEN: Soft, no tenderness. LABS: Hemoglobin is 12.2, white count 6.1. BUN of 10, creatinine 0.59. DIAGNOSTIC IMPRESSION AND PLAN: Patient with acute sigmoid diverticulitis. Patient seemed to have shown overall clinical improvement. The patient did have a positive UA with culture now showing a Pseudomonas aeruginosa. Antibiotics will be switched over to Cipro and Flagyl for 10 days and a close outpatient followup. MMODL / IJN: [id number] /
[2018-09-01 12:16] VITALS: BP 172/76; PULSE 59; RESP 17; TEMP 97.7
--- NOTE | 2018-09-02 13:31 | CDI ---
Documentation Clarification Form Date: 09/02/18 From: RAFAEL Quinteros Phone: If you have question, contact Ashlee Blank at [phone] M-F 8:30 am to 6pm. Admit Date: 08/28/2018 2:44:00 PM Patient Name: Tonya Smith Visit Number: [id number] Discharge Date: 09/01/2018 2:50:00 PM ATTENTION: The Clinical Documentation Specialists (CDI) and [facility] Coding Staff appreciate your assistance in clarifying documentation. Please respond to the clarification below the line at the bottom and electronically sign. The CDI & [facility] Coding staff will review the response and follow-up if needed. Please note: Queries are made part of the Legal Health Record. If you have any questions, please contact the author of this message via ITS. Dr. Mauricio Aguila MD Ms Smith is admitted with constant lower abdominal pain. H&P and progress note dated 08/29 indicates Acute diverticulitis, sigmoid with sepsis, present on admission. Patient is also found to have a UTI positive for Pseudomonas. The diagnosis of sepsis isnt documented past 08/29. The patient presented on 08/28 with the following: WBC: 14.8 Vitals signs on admission: T 98.2, Pulse 74, RR 16, BP 125/89 Treatment: IV fluids, Flagyl and Zosyn In your professional opinion, please clarify if these findings signify one of the following conditions if known: Condition Sepsis ruled out Sepsis due to diverticulitis Sepsis due to UTI Other, please specify Unable to determine SIRS Criteria (2 or more of the following may indicate SIRS): -Temperature < 96.8F (36C) or > 101.0F (38.3C) -Heart Rate > 90 bpm -Respiratory Rate > 20 breaths/min or PaCO2 < 32 mmHg -White Blood Cell Count > 12,000 or < 4,000 cells/mm3 or > 10% bands -Lactate >2.0 mmol/L (>4.0 is equivalent to septic shock) pt has only leukocytosis , so she does not meet criteria for SIR syndrome MTDD
== END 2018-09-01 14:50 | disposition home or self-care (01) | DRG 392 ==
LOC: EC 11:09 → 3SCARD 14:44 → 3NMEDONC 08-31 21:41
PROVIDERS: ADMIT Hospitalist; ATTEND Hospitalist
DX: K57.32 Diverticulitis of large intestine without perforation or abscess without bleeding (principal); N39.0 Urinary tract infection, site not specified; B96.5 Pseudomonas (aeruginosa) (mallei) (pseudomallei) as the cause of diseases classified elsewhere; I10 Essential (primary) hypertension; I44.1 Atrioventricular block, second degree; F41.9 Anxiety disorder, unspecified; I25.10 Atherosclerotic heart disease of native coronary artery without angina pectoris; Z90.49 Acquired absence of other specified parts of digestive tract; I25.2 Old myocardial infarction; Z87.440 Personal history of urinary (tract) infections; Z95.5 Presence of coronary angioplasty implant and graft; Z87.891 Personal history of nicotine dependence
CPT/HCPCS: 36415; 71045; 74177; 80048; 80053; 81001; 83605; 83690; 84484; 85025; 87040; 87077; 87086; 87186; 93005; 96361; 96374; 96375; 99285